=== PATIENT | male | born 1985 | race Two or more races ===

== ENCOUNTER 2020-08-11 07:44 | Emergency (ER) | payer SELFPAY ==
[~2020-08-11] VITALS: Ht 188 cm; Wt 99.8 kg
--- NOTE | 2020-08-11 07:42 | Emergency Room Report ---
History of Present Illness General Chief Complaint: Substance Abuse Source: Patient, EMS Present Illness HPI Patient is 35-year-old male presents patient was brought in by fire department with after recent ingestion of methamphetamine. [employer] after report of patient behaving somewhat agitated. Apparently he had been calm after police arrived. Has prior history of diabetes as well as hypertension. Patient has some chronic pain to his extremities. Denies any current complaints. Allergies: Coded Allergies: SULFAMETHOXAZOLE (Verified Allergy, Unknown, 08/11/20) TRIMETHOPRIM (Verified Allergy, Unknown, 08/11/20) COVID-19 Screening Contact w/high risk pt: No Experienced COVID-19 symptoms?: No COVID-19 Testing performed FRONT DESK MANAGER: No Patient History Past Medical History: see triage record Reviewed Nursing Documentation: PMH: Agreed; PSxH: Agreed Nursing Documentation-PMH Hx Hypertension: Yes Hx Diabetes: Yes Review of Systems All Other Systems: negative except mentioned in HPI Physical Exam Vital Signs Date Time Temp Pulse Resp B/P (MAP) Pulse Ox O2 Delivery O2 Flow Rate FiO2 08/11/20 07:33 98.8 109 18 162/88 (112) 98 Room Air Sp02 EP Interpretation: reviewed, normal General Appearance: normal inspection, well appearing, no apparent distress, alert, GCS 15 Head: atraumatic ENT: normal ENT inspection, hearing grossly normal, normal voice Neck: normal inspection, full range of motion, supple, no bony tend Respiratory: normal inspection, lungs clear, normal breath sounds, no respiratory distress, no retraction, no wheezing Cardiovascular #1: regular rate, rhythm, edema - Trace edema Gastrointestinal: normal inspection, normal bowel sounds, non tender, soft, no guarding, no hernia Genitourinary: no CVA tenderness Musculoskeletal: normal inspection, back normal, normal range of motion, swelling - Bilateral lower extremity Neurologic: alert, motor strength/tone normal, refrigeration mechanic III-XII nml as tested, oriented x3, responsive, speech normal, normal inspection Psychiatric: normal inspection, judgement/insight normal, mood/affect normal Skin: other - Diffuse skin rash Medical Decision Making Diagnostic Impression: Primary Impression: Substance abuse Additional Impressions: Psychosis Diabetes ER Course Patient presented for increased agitation and reported hallucinations. Differential diagnosis include was not limited to substance abuse, psychosis, electrolyte abnormalities among others. Because of complexity of patient's case laboratory tests and imaging studies were ordered. Patient was noted to have some history of type 1 diabetes. His sugar appears to be okay. Patient was medically cleared for psychiatric placement. Labs Test 08/11/20 08:00 White Blood Count 12.2 K/UL (4.8-10.8) Red Blood Count 3.68 M/UL (4.70-6.10) Hemoglobin 9.9 G/DL (14.2-18.0) Hematocrit 30.7 % (42.0-52.0) Mean Corpuscular Volume 83 FL (80-99) Mean Corpuscular Hemoglobin 26.8 PG (27.0-31.0) Mean Corpuscular Hemoglobin Concent 32.2 G/DL (32.0-36.0) Red Cell Distribution Width 14.1 % (11.6-14.8) Platelet Count 319 K/UL (150-450) Mean Platelet Volume 5.1 FL (6.5-10.1) Neutrophils (%) (Auto) 72.7 % (45.0-75.0) Lymphocytes (%) (Auto) 13.3 % (20.0-45.0) Monocytes (%) (Auto) 6.9 % (1.0-10.0) Eosinophils (%) (Auto) 3.2 % (0.0-3.0) Basophils (%) (Auto) 4.0 % (0.0-2.0) Sodium Level 138 MMOL/L (136-145) Potassium Level 3.1 MMOL/L (3.5-5.1) Chloride Level 105 MMOL/L (98-107) Carbon Dioxide Level 20 MMOL/L (21-32) Anion Gap 13 mmol/L (5-15) Blood Urea Nitrogen 4 mg/dL (7-18) Creatinine 1.0 MG/DL (0.55-1.30) Estimat Glomerular Filtration Rate > 60 mL/min (>60) Glucose Level 124 MG/DL (74-106) Calcium Level 7.9 MG/DL (8.5-10.1) Last Vital Signs Date Time Temp Pulse Resp B/P (MAP) Pulse Ox O2 Delivery O2 Flow Rate FiO2 08/11/20 07:33 98.8 109 18 162/88 (112) 98 Room Air Status: improved Disposition: PSYCH HOSP/UNIT Condition: Stable Royce Hurtado MD Aug 11, 2020 07:42
--- NOTE | 2020-08-11 07:43 | NUR ---
ED Nurse Note: Pt arrived with RA 29 due to Meth use. pt reports that he smoked it but does not know when and how much. Pt is cooperative, but loud. pt is aox4, NAD noted. pt skin appears dries and flakey. pt has mild pedal edema. ERMD at bedside.
[2020-08-11 07:45] VITALS: BP 162/88
--- NOTE | 2020-08-11 07:50 | NUR ---
ED Nurse Note: Pt verbally refuses COVID swab testing.
[2020-08-11] MEDS ORDERED: Haloperidol 5mg/ml Inj IM ONE (08:00)
[2020-08-11] MEDS ORDERED: DiphenhydrAMINE 50mg/ml Inj IM ONE (08:00)
--- NOTE | 2020-08-11 08:03 | NUR ---
ED Nurse Note: Pt was given water with ERMD consent.
[2020-08-11 08:15] LABS: EOSINOPHILS % (AUTO) 3.2 % (0.0-3.0); HEMATOCRIT 30.7 % (42.0-52.0); HEMOGLOBIN 9.9 G/DL (14.2-18.0); LYMPHOCYTES % (AUTO) 13.3 % (20.0-45.0); MEAN CORPUSCULAR VOLUME 83 FL (80-99); MONOCYTES % (AUTO) 6.9 % (1.0-10.0); NEUTROPHILS % (AUTO) 72.7 % (45.0-75.0); PLATELET COUNT 319 K/UL (150-450); RED BLOOD COUNT 3.68 M/UL (4.70-6.10); RED CELL DISTRIBUTION WIDTH 14.1 % (11.6-14.8); WHITE BLOOD COUNT 12.2 K/UL (4.8-10.8)
[2020-08-11 09:12] LABS: ANION GAP 13 mmol/L (5-15); BLOOD UREA NITROGEN 4 mg/dL (7-18); CALCIUM 7.9 MG/DL (8.5-10.1); CARBON DIOXIDE 20 MMOL/L (21-32); CHLORIDE 105 MMOL/L (98-107); POTASSIUM 3.1 MMOL/L (3.5-5.1); SODIUM 138 MMOL/L (136-145)
[2020-08-11 09:24] LABS: ALANINE AMINOTRANSFERASE 17 U/L (12-78); ALBUMIN 2.9 G/DL (3.4-5.0); ALBUMIN/GLOBULIN RATIO 0.8 (1.0-2.7); ALKALINE PHOSPHATASE 96 U/L (46-116); ASPARTATE AMINO TRANSFERASE 25 U/L (15-37); BILIRUBIN,TOTAL 0.7 MG/DL (0.2-1.0); CREATINE KINASE 247 U/L (26-308)
--- NOTE | 2020-08-11 09:30 | NUR ---
ED Nurse Note: Pt resting in bed, pt was able to take medication without complications
[2020-08-11 09:55] VITALS: BP 154/83
--- NOTE | 2020-08-11 09:55 | NUR ---
ED Nurse Note: Pt asleep in bed, unable to provide urine at this time.
--- NOTE | 2020-08-11 11:30 | NUR ---
ED Nurse Note: Pt asleep in room.
[2020-08-11 11:45] VITALS: BP 149/85
[2020-08-11 13:25] VITALS: BP 139/80
--- NOTE | 2020-08-11 13:50 | NUR ---
ED Nurse Note: pt asleep in room, NAD
--- NOTE | 2020-08-11 14:04 | NUR ---
ED Nurse Note: Pt has no complaints at this time, pt is asleep in room; lights dimmed. iv still intact and patent.
[2020-08-11 15:23] VITALS: BP 128/79
--- NOTE | 2020-08-11 16:35 | NUR ---
ED Nurse Note: Pt still asleep in bed. pt does not want a meal at this time.
--- NOTE | 2020-08-11 17:00 | NUR ---
ED Nurse Note: Report received from RAVEN Austin. Patient moved to ortho room at this time. He is calm and cooperative. Patient provided with sandwhich and juice. Will continue to monitor. NAD noted.
[2020-08-11 21:00] VITALS: BP 119/90
--- NOTE | 2020-08-11 21:00 | NUR ---
ED Nurse Note: Patient is sleeping at this time. RN monitoring patient. NAD noted. Breathing is normal and unlabored.
--- NOTE | 2020-08-11 21:41 | NUR ---
Estefani strickland in EDM - 08/12/20 at 0440 by CONNIE ED Nurse Note: sent covid patient down to lab
--- NOTE | 2020-08-11 21:45 | NUR ---
ED Nurse Note: sent covid sample down to lab
[2020-08-11 22:55] LABS: APPEARANCE,URINE CLEAR; BILIRUBIN, URINE NEGATIVE (NEGATIVE); COLOR,URINE PALE YELLOW; GLUCOSE, URINE (UA) NEGATIVE (NEGATIVE); KETONES,URINE NEGATIVE (NEGATIVE); LEUKOCYTE ESTERASE ,URINE 2+ (NEGATIVE); NITRITE,URINE NEGATIVE (NEGATIVE); PH,URINE 5 (4.5-8.0); PROTEIN,URINE NEGATIVE (NEGATIVE); UROBILINOGEN,URINE NORMAL MG/DL (0.0-1.0)
--- NOTE | 2020-08-12 | NUR ---
ED Nurse Note: Patient has been cooperative and calm. He is sleeping at this time. Will continue to monitor. NAD noted.
--- NOTE | 2020-08-12 03:45 | NUR ---
ED Nurse Note: Patient is sleeping in bed at this time with safety measures in place. Breathing is normal and unlabored. NAD.
[2020-08-12 05:04] VITALS: BP 134/68
--- NOTE | 2020-08-12 05:05 | NUR ---
HAND-OFF: Report given to Steven Villasenor RN.
--- NOTE | 2020-08-12 05:06 | NUR ---
ED Nurse Note: received report from Cait CARBAJAL. Pt calm and sleeping in bed. Sitter at bedside
--- NOTE | 2020-08-12 06:03 | NUR ---
ED Nurse Note: Patient belongings placed in locker #2
--- NOTE | 2020-08-12 07:00 | NUR ---
ED Nurse Note: Report received from RAVEN Layton. Pt lying comfortably in bed with no signs of distress. A+Ox4, calm and cooperative. Pt does not have IV access. in psych gown. Belongings in psych locker. Sitter @ bedside. Breakfast tray ordered for patient. Respirations even and unlabored on room air. Vitals stable as documented. Pt denies SI/HI
[2020-08-12] MEDS ORDERED: CEPHALEXIN500 MG ORAL (10:07)
[2020-08-12] MEDS ORDERED: EUCERIN CREAM15 GM TOPIC (10:07)
--- NOTE | 2020-08-12 10:08 | NUR ---
ED Nurse Note: Dr. Donald @ bedside to evaluate pt
[2020-08-12] MEDS ORDERED: AQUAPHOR99 GM TP (10:21)
[2020-08-12 10:40] VITALS: BP 139/73
--- NOTE | 2020-08-12 10:40 | NUR ---
Homeless Discharge: Patient is being discharged from medical care. Awake, alert and oriented x4. Clothing retrieved from locker and safe and given to patient. After care instructions, including referral to community resources were given. Patient verbalized understanding of After care instructions; at this time patient does not request equipment or placement. Pt requested Aquafor ointment prescription. provided. Pt also asked for packets of A+D ointment, and those were provided as well. Patient signed patient consent in the medical record for patient destination upon discharge. Pt declined to disclose discharge location. All medical devices such as ID band were removed. Pt did not have IV access. Clothing adequate. Food provided. Patient wheeled out by Security, then walked to bus stop.
--- NOTE | 2020-08-12 17:30 | Consultation ---
DATE OF CONSULTATION: 08/12/2020 NOTE: INCOMPLETE DICTATION CONSULTING PHYSICIAN: Asha Donald MD HISTORY OF PRESENT ILLNESS: This is a 35-year-old black male with several hospitalization to different hospitals around the city as well as psychiatric hospitalization, who is coming in with the same complaint. Initially, he came in because he had been using methamphetamine and having behavior issues and was aggressive. He was placed on 5150 by the physical science aide. He came in and during the evaluation, it was noted by the ER doctor that the patient was not having any medical issues and that he needed to be admitted. He has cellulitis and dermatitis. The patient is refusing to walk. Stated that he is not able to walk. There is no indication for him not to be able to walk. He then stated that he is suicidal. He is trying to use the system and he is threatening to call 911 if he will be discharged from our ER. He said also abusing other drugs and was uncooperative during the evaluation. He has threatening behavior and has poor insight into his current substance use disorder. PAST PSYCHIATRIC HISTORY: Unknown. he has no history of suicide attempt. PAST MEDICAL HISTORY: Significant for dermatitis. ALLERGIES: SUBSTANCE ABUSE HISTORY: Significant for crystal meth as well as other drugs like marijuana and crack cocaine. MENTAL STATUS EXAMINATION: The patient is alert and oriented times self, place, situation, and date. Mood is irritable. Affect is blunted, congruent with mood. Thought process is concrete. Thought content, there is no suicidal or homicidal ideation. Cognition is intact. Insight and judgment is . Asha Donald M.D. DR: SELINA JOB#: [id number] CC:
== END 2020-08-12 10:40 | disposition home or self-care (01) ==
LOC: EDBD 07:44 → EMR 07:50 → CANBEDREQ 08-12 10:22 → EMR 08-12 10:40
DX: F19.10 Other psychoactive substance abuse, uncomplicated (principal); F29 Unspecified psychosis not due to a substance or known physiological condition; E11.9 Type 2 diabetes mellitus without complications; Z88.2 Allergy status to sulfonamides; Z88.8 Allergy status to other drugs, medicaments and biological substances; I10 Essential (primary) hypertension; N39.0 Urinary tract infection, site not specified
CPT/HCPCS: 36415; 80053; 80307; 81003; 82550; 85025; 87086; 96372; 99284; G0480; J1200; J1630; U0002; J8499